=== PATIENT | female | born 1980 | race American Indian/Alaskan Native ===

== ENCOUNTER 2017-12-11 09:13 | Emergency (ER) | payer MEDICAID, OTHER ==
[2017-12-11 09:48] VITALS: BMI 19.6
[2017-12-11 09:55] VITALS: TEMP 98.4
--- NOTE | 2017-12-11 10:56 | ED PDOC ---
Arrival/HPI - General Chief Complaint: Headache Time Seen by Provider: 12/11/17 10:48 Historian: Patient - History of Present Illness Narrative History of Present Illness (Text): 12/11/17 10:53 A 37 year old female, whose past medical history includes migraine headache, presents to the emergency department complaining of a constant left sided headache for 5 days. Patient reports her pain is localized behind her left eye. She notes associated nausea and photophobia. Patient was seen by PMD yesterday and received shot with no improvement of symptoms. Patient denies any fever, chills, nausea, vomiting, abdominal pain, chest pain, shortness of breath or any other complaints. Time/Duration: Other (5 days) Symptom Course: Unchanged Past Medical History - Provider Review Nursing Documentation Reviewed: Yes - Cardiac Hx Cardiac Disorders: No - Pulmonary Hx Respiratory Disorders: No - Neurological Hx Migraine: Yes - Psychiatric Hx Substance Use: No Family/Social History - Physician Review Nursing Documentation Reviewed: Yes Family/Social History: No Known Family HX Smoking Status: Never Smoked Hx Alcohol Use: No Hx Substance Use: No Allergies/Home Meds Allergies/Adverse Reactions: Allergies No Known Allergies Allergy (Verified 12/11/17 09:48) Home Medications: Home Meds Medication Instructions Recorded Confirmed Sumatriptan Succinate [Imitrex] 50 mg PO Q4 12/11/17 12/11/17 Topiramate [Topamax] 50 mg PO BID 12/11/17 12/11/17 Review of Systems - Physician Review All systems were reviewed & negative as marked: Yes - Review of Systems Constitutional: absent: Fevers, Night Sweats Eyes: Photophobia Respiratory: absent: SOB Cardiovascular: absent: Chest Pain Gastrointestinal: absent: Abdominal Pain, Nausea, Vomiting Neurological: Headache Physical Exam Vital Signs Reviewed: Yes Vital Signs Temp Pulse Resp BP Pulse Ox 12/11/17 12:10 69 16 124/72 99 12/11/17 09:50 98.4 F 86 18 115/79 98 Temperature: Afebrile Blood Pressure: Normal Pulse: Regular Respiratory Rate: Normal Appearance: Positive for: Well-Appearing, Non-Toxic, Comfortable Pain Distress: None Mental Status: Positive for: Alert and Oriented X 3 - Systems Exam Head: Present: Atraumatic, Normocephalic Pupils: Present: PERRL Extroacular Muscles: Present: EOMI Conjunctiva: Present: Normal, Other (Left eye tearing) Mouth: Present: Moist Mucous Membranes Neck: Present: Normal Range of Motion Respiratory/Chest: Present: Clear to Auscultation, Good Air Exchange. No: Respiratory Distress, Accessory Muscle Use Cardiovascular: Present: Regular Rate and Rhythm, Normal S1, S2. No: Murmurs Abdomen: No: Tenderness, Distention, Peritoneal Signs Back: Present: Normal Inspection Upper Extremity: Present: Normal Inspection. No: Cyanosis, Edema Lower Extremity: Present: Normal Inspection. No: Edema Neurological: Present: GCS=15, CN II-XII Intact, Speech Normal Skin: Present: Warm, Dry, Normal Color. No: Rashes Psychiatric: Present: Alert, Oriented x 3, Normal Insight, Normal Concentration Medical Decision Making ED Course and Treatment: 12/11/17 10:53 Impression: A 37 year old female with a left sided headache, nausea and photophobia Plan: -- Labs -- Benadryl, Morphine, Reglan, IV fluids and Zofran -- Reassess and disposition Progress Notes: - Lab Interpretations Lab Results: 12/11/17 11:15 12/11/17 11:15 Lab Results 12/11/17 11:15: Beta HCG, Quant < 2.39 12/11/17 11:15: Sodium 143, Potassium 3.8, Chloride 107, Carbon Dioxide 21, Anion Gap 17, BUN 11, Creatinine 0.9, Est GFR ( Amer) > 60, Est GFR (Non- Af Amer) > 60, Random Glucose 58 L, Calcium 9.9, Total Bilirubin 0.4, AST 25, ALT 49, Alkaline Phosphatase 82, Total Protein 8.1, Albumin 4.2, Globulin 3.9, Albumin/Globulin Ratio 1.1 12/11/17 11:15: WBC 8.4, RBC 3.88, Hgb 12.2, Hct 37.0, MCV 95.4, MCH 31.4, MCHC 33.0, RDW 13.2, Plt Count 314, MPV 10.4, Gran % 63.9, Lymph % (Auto) 29.7, [place] % (Auto) 5.1, Eos % (Auto) 1.1 L, Baso % (Auto) 0.2, Gran # 5.33, Lymph # (Auto ) 2.5, [place] # (Auto) 0.4, Eos # (Auto) 0.1, Baso # (Auto) 0.02 I have reviewed the lab results: Yes - Medication Orders Current Medication Orders: Discontinued Medications Diphenhydramine HCl (Benadryl) 25 mg IVP STAT STA Stop: 12/11/17 10:58 Last Admin: 12/11/17 11:17 Dose: 25 mg IVP Administration Document 12/11/17 11:17 FAHAD (Rec: 12/11/17 11:17 FAHAD [id number]) Charges for Administration # of IVP Administrations 1 Sodium Chloride (Sodium Chloride 0.9%) 1,000 mls @ 999 mls/hr IV .Q1H1M STA Stop: 12/11/17 11:57 Last Admin: 12/11/17 11:16 Dose: 999 mls/hr eMAR Start Stop Document 12/11/17 11:16 FAHAD (Rec: 12/11/17 11:16 FAHAD [id number]) Intravenous Solution Start Date 12/11/17 Start Time 11:16 End Date 12/11/17 End time 12:16 Total Infusion Time 60 Metoclopramide HCl (Reglan) 10 mg IVP STAT STA Stop: 12/11/17 10:58 Last Admin: 12/11/17 11:20 Dose: 10 mg IVP Administration Document 12/11/17 11:20 FAHAD (Rec: 12/11/17 11:20 FAHAD [id number]) Charges for Administration # of IVP Administrations 1 Morphine Sulfate (Morphine) 10 mg IVP STAT STA Stop: 12/11/17 10:58 Last Admin: 12/11/17 11:15 Dose: 10 mg MAR Pain Assessment Document 12/11/17 11:15 FAHAD (Rec: 12/11/17 11:16 FAHAD [id number]) Pain Reassessment Is this a pain reassessment? 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 Description Constant Intensity of Pain at present 8 IVP Administration Document 12/11/17 11:15 FAHAD (Rec: 12/11/17 11:16 FAHAD [id number]) Charges for Administration # of IVP Administrations 1 Ondansetron HCl (Zofran Inj) 4 mg IVP STAT STA Stop: 12/11/17 10:58 Last Admin: 12/11/17 11:17 Dose: 4 mg IVP Administration Document 12/11/17 11:17 FAHAD (Rec: 12/11/17 11:17 FAHAD [id number]) Charges for Administration # of IVP Administrations 1 Ondansetron HCl (Zofran Odt) 4 mg PO STAT STA Stop: 12/11/17 12:43 Last Admin: 12/11/17 12:52 Dose: Oxycodone/Acetaminophen (Percocet 5/325 Mg Tab) 1 tab PO STAT STA Stop: 12/11/17 12:43 Last Admin: 12/11/17 12:51 Dose: - Scribe Statement The provider has reviewed the documentation as recorded by the Scribe Jemima Werner Provider Scribe Attestation: All medical record entries made by the Scribe were at my direction and personally dictated by me. I have reviewed the chart and agree that the record accurately reflects my personal performance of the history, physical exam, medical decision making, and the department course for this patient. I have also personally directed, reviewed, and agree with the discharge instructions and disposition. Disposition/Present on Arrival - Present on Arrival Any Indicators Present on Arrival: No History of DVT/PE: No History of Uncontrolled Diabetes: No Urinary Catheter: No History of Decub. Ulcer: No History Surgical Site Infection Following: None - Disposition Have Diagnosis and Disposition been Completed?: Yes Diagnosis: Migraine headache Disposition Time: 12:56 Patient Plan: Discharge Patient Problems: Current Active Problems Problem Status Onset Migraine headache Acute Condition: GOOD Discharge Instructions (ExitCare): Migraine Headache (DC) Additional Instructions: Peri- Sorry you are not feeling well. Please follow up with your neurologist and let them know what is going on with your headaches. Return to us if any problems. Zofran ODT is for Nausea, Percocet is for really really really bad pain. Take it only if absolutely necessary! Best- Dr. Devin Fischer Prescriptions: Ondansetron ODT [Zofran ODT] 4 mg PO TID #30 odt oxyCODONE/Acetaminophen [Percocet 5/325 mg Tab] 1 ea PO QID #12 tab Referrals: Demetra Ivory MD [Primary Care Provider] - Follow up with primary Forms: [employer] (Frisian), WORK NOTE
[2017-12-11] MEDS ORDERED: DiphenhydrAMINE 50 mg/ml Inj IVP STA (10:57)
[2017-12-11] MEDS ORDERED: Sodium Chloride 0.9% 1,000 ML IV STA (10:57)
[2017-12-11 11:53] LABS: BASO # 0.02 K/mm3 (0.0-2.0); BASO % 0.2 % (0.0-3.0); EOS # 0.1 (0.0-0.7); EOS % 1.1 % (1.5-5.0); GRAN # 5.33 (1.4-6.5); GRAN % 63.9 % (50.0-68.0); HEMOGLOBIN 12.2 g/dL (12.0-16.0); LYMPH # 2.5 (1.2-3.4); LYMPH % 29.7 % (22.0-35.0); MEAN CELL VOLUME 95.4 fl (80.0-105.0); MEAN CORPUSCULAR HEMOGLOBIN 31.4 pg (25.0-35.0); MEAN PLATELET VOLUME 10.4 fl (7.0-11.0); MONO # 0.4 (0.1-0.6); MONO % 5.1 % (1.0-6.0); RBC 3.88 10^6/uL (3.5-6.1); RED CELL DISTRIBUTION WIDTH 13.2 % (11.5-14.5); WHITE BLOOD COUNT 8.4 10^3/ul (4.5-11.0)
[2017-12-11 12:10] VITALS: BP 124/72; PULSE 69; RESP 16; O2SAT 99
[2017-12-11 12:10] LABS: ALB/GLOB RATIO 1.1 (1.1-1.8); ALBUMIN 4.2 g/dL (3.0-4.8); ALT/SGPT 49 U/L (7-56); AST/SGOT 25 U/L (14-36); BLOOD UREA NITROGEN 11 mg/dL (7-21); CALCIUM 9.9 mg/dL (8.4-10.5); GFR AFRICAN-AMERICAN > 60; GFR NON-AFRICAN AMERICAN > 60
[2017-12-11] MEDS ORDERED: Oxycodone/Acetaminophen 5/325 mg Tab PO STA (12:42)
== END 2017-12-11 13:48 | disposition home or self-care (01) ==
LOC: ED 09:13
DX: G43.909 Migraine, unspecified, not intractable, without status migrainosus (principal)
CPT/HCPCS: 80053; 84702; 85025; 96361; 96374; 96375; 99283; J1200; J2270; J2405; J2765; J7040